=== PATIENT | male | born 1950 | race Caucasian/White ===

== ENCOUNTER 2018-03-30 10:50 | Emergency (ER) | payer OTHER ==
[~2018-03-30] VITALS: Ht 172.7 cm; Wt 77.3 kg
[2018-03-30 11:27] LABS: BASO # 0.1 (0.0-0.2); BASO % 0.7 % (0.0-2.0); EOS # 0.1 (0.0-0.7); EOS % 1.6 % (0-4.0); GRAN # 4.3 (1.4-6.5); HEMOGLOBIN 16.2 g/dl (13.5-18.0); LYMPH # 1.8 (1.2-3.4); LYMPH % 26.6 % (20.0-51.0); MEAN CELL VOLUME 90 fl (80.0-100.0); MEAN CORPUSCULAR HEMOGLOBIN 30 pg (27.0-31.0); MEAN CORPUSCULAR HGB CONC 33 g/dl (33.0-37.0); MEAN PLATELET VOLUME 9.8 fl (7.4-10.4); MONO # 0.5 (0.1-0.6); MONO % 7.8 % (1.7-9.3); PLATELET COUNT 185 K/mm3 (130-400); RED BLOOD COUNT 5.47 M/mm3 (4.20-5.60); REDCELL DISTRIBUTION WIDTH-CV 12.6 % (11.5-14.5)
[2018-03-30 11:29] LABS: ALANINE AMINOTRANSFERASE 41 U/L (21-72); ALBUMIN 4.5 gm/dL (3.5-5.0); ALKALINE PHOSPHATASE 73 U/L (50-136); ANION GAP 13 mmol/L (7-16); AST,SGOT 35 U/L (15-37); BILIRUBIN,TOTAL 0.5 mg/dL (0.0-1.0); BLOOD UREA NITROGEN 28 mg/dL (9-20); CALCIUM 9.1 mg/dL (8.4-10.2); CARBON DIOXIDE 25 mmol/L (22-30); CHLORIDE 102 mmol/L (98-107); CREATININE, serum 0.87 mg/dL (0.66-1.25); GLUCOSE 112 mg/dL (74-106); LIPASE 67 U/L (23-300); MAGNESIUM 2.3 mg/dL (1.6-2.3); PHOSPHOROUS 3.7 mg/dL (2.5-4.5); POTASSIUM 4.1 mmol/L (3.4-5.0); SODIUM 140 mmol/L (137-145); TOTAL PROTEIN 7.9 gm/dL (6.4-8.2)
[2018-03-30 11:41] LABS: TROPONIN-I < 0.012 ng/mL (0.000-0.034)
[2018-03-30 14:12] VITALS: BP 136/96; PULSE 68
== END 2018-03-30 14:14 | disposition home or self-care (01) ==
LOC: COL.ER 10:50
PROVIDERS: Emergency Medicine
DX: I48.92 Unspecified atrial flutter (principal)
CPT/HCPCS: J2250; J2704; J3010

== ENCOUNTER 2019-07-31 12:58 | Emergency (ER) | payer OTHER, MEDICARE ==
[~2019-07-31] VITALS: Ht 170.2 cm; Wt 75.0 kg
[2019-07-31 13:00] VITALS: TEMP 98.2
[2019-07-31] MEDS ORDERED: TOPROL XL 25MG25 MG PO (13:03)
[2019-07-31 13:30] LABS: BASO % 0.4 % (0.0-2.0); EOS # 0.1 (0.0-0.7); EOS % 1.2 % (0-4.0); GRAN # 4.9 (1.4-6.5); GRAN % 64.1 % (42.2-75.2); HEMATOCRIT 47.5 % (42.0-52.0); HEMOGLOBIN 16.1 g/dl (13.5-18.0); LYMPH # 2.1 (1.2-3.4); LYMPH % 27.7 % (20.0-51.0); MEAN CELL VOLUME 89 fl (80.0-100.0); MEAN CORPUSCULAR HEMOGLOBIN 30 pg (27.0-31.0); MEAN CORPUSCULAR HGB CONC 34 g/dl (33.0-37.0); MEAN PLATELET VOLUME 9.7 fl (7.4-10.4); MONO # 0.5 (0.1-0.6); MONO % 6.5 % (1.7-9.3); PLATELET COUNT 183 K/mm3 (130-400); RED BLOOD COUNT 5.35 M/mm3 (4.20-5.60); REDCELL DISTRIBUTION WIDTH-CV 12.7 % (11.5-14.5)
[2019-07-31 13:32] LABS: PROTHROMBIN TIME 11.9 SECONDS (9.7-12.8)
[2019-07-31 13:35] LABS: CALCIUM 9.3 mg/dL (8.4-10.2); CREATININE, serum 0.78 (0.66-1.25); POTASSIUM 4.2 mmol/L (3.4-5.0)
[2019-07-31 15:15] VITALS: BP 106/86; PULSE 131
[2019-07-31] MEDS ORDERED: CARDIZEM CD 12120 MG PO (15:26)
[2019-07-31] MEDS ORDERED: ELIQUIS 5MG PO (15:36)
== END 2019-07-31 15:40 | disposition home or self-care (01) ==
LOC: COL.ER 12:58
PROVIDERS: Emergency Medicine
DX: I48.92 Unspecified atrial flutter (principal); Z79.01 Long term (current) use of anticoagulants

== ENCOUNTER 2019-08-03 10:28 | Inpatient (IN) | payer OTHER, MEDICARE ==
[2019-08-03] VITALS (254 sets, daily range): BP systolic 85–123; BP diastolic 65–98; PULSE 71–135; TEMP 97.8–98.6; O2SAT 88–99
[~2019-08-03] VITALS: Ht 170.2 cm; Wt 86.1 kg
[~2019-08-03 10:28] MED LIST: CARDIZEM CD 12120 MG PO; ELIQUIS 5MG PO; TOPROL XL 25MG25 MG PO
[2019-08-03 11:12] LABS: BASO % 0.6 % (0.0-2.0); EOS # 0.1 (0.0-0.7); EOS % 0.7 % (0-4.0); GRAN # 4.6 (1.4-6.5); GRAN % 66.4 % (42.2-75.2); HEMATOCRIT 48.2 % (42.0-52.0); HEMOGLOBIN 15.9 g/dl (13.5-18.0); LYMPH # 1.7 (1.2-3.4); LYMPH % 24.5 % (20.0-51.0); MEAN CELL VOLUME 90 fl (80.0-100.0); MEAN CORPUSCULAR HEMOGLOBIN 30 pg (27.0-31.0); MEAN CORPUSCULAR HGB CONC 33 g/dl (33.0-37.0); MONO # 0.5 (0.1-0.6); MONO % 7.5 % (1.7-9.3); PLATELET COUNT 193 K/mm3 (130-400); RED BLOOD COUNT 5.38 M/mm3 (4.20-5.60); REDCELL DISTRIBUTION WIDTH-CV 12.5 % (11.5-14.5)
[2019-08-03 11:15] LABS: INR 1.1 (0.8-3.0); PROTHROMBIN TIME 12.4 SECONDS (9.7-12.8)
[2019-08-03 11:19] LABS: ALBUMIN 4.2 gm/dL (3.5-5.0); BILIRUBIN,TOTAL 0.6 mg/dL (0.0-1.0); CALCIUM 9.3 mg/dL (8.4-10.2); CREATININE, serum 1.03 (0.66-1.25); POTASSIUM 4.6 mmol/L (3.4-5.0); TOTAL PROTEIN 7.4 gm/dL (6.4-8.2)
[2019-08-03] MEDS ORDERED: ELIQUIS 5MG PO (11:21)
[2019-08-03] MEDS ORDERED: TIAZAC240 MG PO (11:22)
[2019-08-03 11:30] LABS: TROPONIN-I 0.032 ng/mL (0.000-0.035)
--- NOTE | 2019-08-03 14:10 | NUR ---
Pt admitted at this time to ICU bed 5 from ED. Pt arrived via stretcher and was placed on radiation monitor upon arrival. Pt tolerated transfer well with no complaints or concerns raised to nursing staff at this time. Vitals stable while on Cardizem gtt at 10 mg/hr. Dr. Franks notified of Pt admission and will be down shortly to see the patient. Call light within reach, bed in low et locked position, will continue to monitor.
--- NOTE | 2019-08-03 15:18 | NUR ---
Commercial Credit Officer met with patient to discuss discharge planning. Patient lives alone in [place] and does not have a current primary care physician. Patient states he used to see Dr. Augustus Randall but that it has been several years since he has been seen. SW offered to bring a list of [place] primary care providers but patient states he will just look either in the phone book or online. Patient obtains medications from [facility] and does not use any DME. Patient reports independence with ADLS. Patient states he has a Living Will that he set up with a local patent attorney but does not have a copy in EMR. Patient states it desigates his sister, Carmen who lives in [place]. Patient plans to return home upon discharge. No additional concerns at this time.
[2019-08-03] MEDS ORDERED: OMEGA-31 SGL PO (15:52)
[2019-08-03] MEDS ORDERED: OMEGA-3 1000 MG1 CAP PO (15:53)
[2019-08-03] MEDS ORDERED: THE MEDICINE S200 M2 PO (15:54)
--- NOTE | 2019-08-03 17:10 | NUR ---
Admission assessment complete at this time. Plan of care reviewed at bedside with patient. Additional time taken to address any other needs or concerns. Vitals stable at this time while on Cardizem gtt at 15 mg/hr. Pt denies pain or any other discomfort. Bed in low position, call light within reach, will continue to monitor.
--- NOTE | 2019-08-03 19:33 | NUR ---
Bedside report given to FLASH Smith.
--- NOTE | 2019-08-03 21:50 | NUR ---
Report and POC given to FLASH Vincent.
[2019-08-04] VITALS (236 sets, daily range): BP systolic 101–130; BP diastolic 51–97; PULSE 49–128; TEMP 97.2–98.2; O2SAT 62–100
[2019-08-04 06:16] LABS: BASO % 0.6 % (0.0-2.0); EOS # 0.1 (0.0-0.7); EOS % 1.7 % (0-4.0); GRAN # 3.9 (1.4-6.5); GRAN % 56.2 % (42.2-75.2); HEMATOCRIT 47.1 % (42.0-52.0); HEMOGLOBIN 15.5 g/dl (13.5-18.0); LYMPH # 2.2 (1.2-3.4); LYMPH % 31.8 % (20.0-51.0); MEAN CELL VOLUME 90 fl (80.0-100.0); MEAN CORPUSCULAR HEMOGLOBIN 30 pg (27.0-31.0); MEAN CORPUSCULAR HGB CONC 33 g/dl (33.0-37.0); MEAN PLATELET VOLUME 10.2 fl (7.4-10.4); MONO # 0.7 (0.1-0.6); MONO % 9.4 % (1.7-9.3); PLATELET COUNT 182 K/mm3 (130-400); RED BLOOD COUNT 5.26 M/mm3 (4.20-5.60); REDCELL DISTRIBUTION WIDTH-CV 12.2 % (11.5-14.5)
[2019-08-04 06:22] LABS: CALCIUM 9.1 mg/dL (8.4-10.2); CREATININE, serum 0.94 (0.66-1.25); POTASSIUM 4.4 mmol/L (3.4-5.0)
[2019-08-04 06:37] LABS: TROPONIN-I 0.047 ng/mL (0.000-0.035)
--- NOTE | 2019-08-04 09:07 | NUR ---
Initial visit; Patient thanked Military Cook for stopping by and offering God's blessings and [place] as he is being discharged today.
--- NOTE | 2019-08-04 09:35 | NUR ---
MD Jacqui, Annie,Ultrasound and Anesthesia notified planned procedure at 1015.
--- NOTE | 2019-08-04 11:01 | NUR ---
MD Jacqui notified of Post CV EKG results. No further orders, unconcerned at this time
--- NOTE | 2019-08-04 11:02 | NUR ---
EKG DONE. NOTIFIED MANUEL VIDALES OF "CRITICAL TEST RESULT" ON EKG. RN WILL CONTACT DR HOPE
--- NOTE | 2019-08-04 14:10 | NUR ---
Report phoned to FLASH Mattson.
--- NOTE | 2019-08-04 14:15 | NUR ---
Pt ambulated independently without difficulty upstairs to rm 308. Recieved by FLASH Mattson.
--- NOTE | 2019-08-04 14:25 | NUR ---
PATIENT ARRIVED TO ROOM 308 AMBULATORY FROM [facility] ACCOMPANIED BY MANUEL VIDALES. UPON ARRIVAL PATIENT A/O X4. ATTITUDE CALM AND PLEASANT. GAIT STEADY WITHOUT ASSISTIVE DEVICES. DENIES C/O PAIN OR DISCOMFORT. LUNG SOUNDS CTA THROUGHOUT. NO C/O OF SOA OR CHEST PAIN. ORIENTATED TO ROOM. NO QUESTIONS OR CONCERNS. ENCOURAGED TO EXPRESS NEEDS NEEDED.
--- NOTE | 2019-08-04 17:21 | NUR ---
ORDER FOR MULTAQ 400MG @ 1700. SEE EMAR FOR LAST DOCUMENTED DOSE AT 1158. HR ON TELEMETRY [place] 48-58. CALL TO ORDERING PROVIDER DR HOUSE. ORDER RECEIVED TO HOLD 1700 DOSE 08/04 AND RESUME BID ORDER 08/05/19.
--- NOTE | 2019-08-04 20:05 | NUR ---
Patient assessed at this time. Alert and oriented x 4, and able to make needs known. Denies having pain and discomfort at this time. Peripheral IV to right AC flushed. Site is without redness, warmth, swelling, and pain. Denies SOB and dyspnea. LS CTA. Respirations even and unlabored. HRR. Telemetry in place-normal sinus. Capillary refill less than 3 seconds. Non-tenting skin turgor. BSAx4. Abdomen soft and non-tender. No edema. Voices no questions, needs, or concerns at this time. Resting in bed with call light within reach.
[2019-08-05 01:36] VITALS: BP 110/71; PULSE 50; TEMP 97.7
[2019-08-05 05:29] VITALS: BP 125/62; PULSE 55; TEMP 97.5
--- NOTE | 2019-08-05 07:13 | NUR ---
Patient has denied having pain and discomfort throughout the night. Voices no questions, needs, or concerns at this time. Report given to first shift nurse.
[2019-08-05 07:22] LABS: BASO % 0.5 % (0.0-2.0); EOS # 0.1 (0.0-0.7); EOS % 2.2 % (0-4.0); GRAN # 3.3 (1.4-6.5); GRAN % 60.2 % (42.2-75.2); HEMATOCRIT 42.2 % (42.0-52.0); HEMOGLOBIN 13.8 g/dl (13.5-18.0); LYMPH # 1.5 (1.2-3.4); LYMPH % 27.7 % (20.0-51.0); MEAN CELL VOLUME 91 fl (80.0-100.0); MEAN CORPUSCULAR HEMOGLOBIN 30 pg (27.0-31.0); MEAN CORPUSCULAR HGB CONC 33 g/dl (33.0-37.0); MEAN PLATELET VOLUME 10.1 fl (7.4-10.4); MONO # 0.5 (0.1-0.6); MONO % 9.2 % (1.7-9.3); PLATELET COUNT 165 K/mm3 (130-400); RED BLOOD COUNT 4.65 M/mm3 (4.20-5.60); REDCELL DISTRIBUTION WIDTH-CV 12.4 % (11.5-14.5)
[2019-08-05 07:47] VITALS: BP 131/70; PULSE 52; TEMP 97.8
[2019-08-05 08:42] LABS: CALCIUM 8.7 mg/dL (8.4-10.2); CREATININE, serum 0.95 (0.66-1.25); POTASSIUM 4.1 mmol/L (3.4-5.0)
[2019-08-05] MEDS ORDERED: MULTAQ400 MG PO (08:53)
--- NOTE | 2019-08-05 10:40 | NUR ---
1040: PATIENT DC TO HOME VIA PRIVATE VEHICLE. PRINTED DC INSTRUCTIONS TO INCLUDE MEDICATIONS, FOLLOW UP AND HOSPITAL DISCHARGE DIAGNOSIS REVIEWED WITH PATIENT. ALL QUESTIONS ASWERED AFTER REVIW.
--- NOTE | 2019-08-05 10:58 | NUR ---
Abstractor attended clinical rounds with the team. Patient to discharge home today. SW provided patient list of local Primary Care Physicians as patient does not currently have PCP. No additional concerns at this time.
== END 2019-08-05 10:40 | disposition home or self-care (01) | DRG 282 ==
LOC: COL.ER 10:28 → ICU 13:21 → IMCU 16:28 → ICU 16:51 → IMCU 23:16 → MEDICAL 08-04 14:37
PROVIDERS: Emergency Medicine; Physician Assistant; ADMIT Hospitalist
PROC: 5A2204Z Restoration of Cardiac Rhythm, Single (ICD-10-PCS; principal; 2019-08-03)
DX: I48.92 Unspecified atrial flutter (principal); I21.A1 Myocardial infarction type 2; I10 Essential (primary) hypertension; I07.1 Rheumatic tricuspid insufficiency; I48.91 Unspecified atrial fibrillation; R74.8 Abnormal levels of other serum enzymes; Z79.01 Long term (current) use of anticoagulants
CPT/HCPCS: 99232-AI; 99239; J2704; J7030

== ENCOUNTER 2019-10-02 10:13 | Emergency (ER) | payer MEDICARE, OTHER ==
[~2019-10-02] VITALS: Ht 170.2 cm; Wt 79.5 kg
[~2019-10-02 10:13] MED LIST changes: +MULTAQ400 MG PO; +OMEGA-3 1000 MG1 CAP PO; +OMEGA-31 SGL PO; +THE MEDICINE S200 M2 PO; +TIAZAC240 MG PO
[2019-10-02 10:28] VITALS: TEMP 98.2
[2019-10-02 10:57] LABS: INR 1.3 (0.8-3.0); PROTHROMBIN TIME 15.6 SECONDS (9.7-12.8)
[2019-10-02 11:00] LABS: PARTIAL THROMBOPLASTIN TIME 38.4 SECONDS (26.0-37.0)
[2019-10-02 11:07] LABS: ALBUMIN 4.2 gm/dL (3.5-5.0); BILIRUBIN,TOTAL 0.5 mg/dL (0.0-1.0); CALCIUM 9.3 mg/dL (8.4-10.2); CREATININE, serum 1.17 (0.66-1.25); MAGNESIUM 2.3 mg/dL (1.6-2.3); POTASSIUM 4.6 mmol/L (3.4-5.0); TOTAL PROTEIN 7.2 gm/dL (6.4-8.2)
[2019-10-02 11:15] LABS: BASO # 0.1 (0.0-0.2); BASO % 0.7 % (0.0-2.0); EOS # 0.1 (0.0-0.7); GRAN # 4.7 (1.4-6.5); GRAN % 64.1 % (42.2-75.2); HEMATOCRIT 48.5 % (42.0-52.0); HEMOGLOBIN 16.4 g/dl (13.5-18.0); LYMPH # 1.8 (1.2-3.4); LYMPH % 24.7 % (20.0-51.0); MEAN CELL VOLUME 88 fl (80.0-100.0); MEAN CORPUSCULAR HEMOGLOBIN 30 pg (27.0-31.0); MEAN CORPUSCULAR HGB CONC 34 g/dl (33.0-37.0); MONO # 0.7 (0.1-0.6); MONO % 9.1 % (1.7-9.3); PLATELET COUNT 198 K/mm3 (130-400); RED BLOOD COUNT 5.54 M/mm3 (4.20-5.60)
[2019-10-02 11:36] LABS: TSH w REFLEX 2.47 uIU/mL (0.465-4.680)
[2019-10-02 15:33] VITALS: BP 168/92; PULSE 59
== END 2019-10-02 15:37 | disposition home or self-care (01) ==
LOC: COL.ER 10:13
PROVIDERS: Emergency Medicine
DX: I48.92 Unspecified atrial flutter (principal); Z79.01 Long term (current) use of anticoagulants
CPT/HCPCS: J0282; J2405; J2704; J3475; J7030; J7060

== ENCOUNTER 2021-06-12 05:02 | Emergency (ER) | payer MEDICARE, OTHER ==
[~2021-06-12] VITALS: Ht 177.8 cm; Wt 90.9 kg
[2021-06-12 05:08] VITALS: TEMP 98
[2021-06-12 05:19] LABS: COLLECTION METHOD CLEAN CATCH
[2021-06-12 05:28] LABS: PH 7 (5-8); SQUAMOUS EPITHELIAL None Seen /hpf; URINE APPEARANCE Clear; URINE BACTERIA None Seen /hpf; URINE BILIRUBIN Negative (NEGATIVE); URINE BLOOD Negative (NEGATIVE); URINE COLOR Straw; URINE GLUCOSE Negative (NEGATIVE); URINE KETONE Negative (NEGATIVE); URINE LEUKOCYTE ESTERASE Negative (NEGATIVE); URINE NITRATE Negative (NEGATIVE); URINE PROTEIN(semi-quant) Negative (NEGATIVE); URINE RBC 0-2 /hpf; URINE UROBILINOGEN Negative (NEGATIVE)
[2021-06-12 05:29] LABS: BASO % 0.5 % (0.0-2.0); EOS # 0.1 K/mm3 (0.0-0.7); EOS % 1.5 % (0-4.0); GRAN # 5.4 K/mm3 (1.4-6.5); GRAN % 67.4 % (42.2-75.2); HEMATOCRIT 47.2 % (42.0-52.0); LYMPH # 1.4 K/mm3 (1.2-3.4); LYMPH % 18.1 % (20.0-51.0); MEAN CELL VOLUME 93 fl (80.0-100.0); MEAN CORPUSCULAR HEMOGLOBIN 30 pg (27.0-31.0); MEAN CORPUSCULAR HGB CONC 32 g/dl (33.0-37.0); MONO % 12.1 % (1.7-9.3); PLATELET COUNT 178 K/mm3 (130-400); RED BLOOD COUNT 5.07 M/mm3 (4.20-5.60); REDCELL DISTRIBUTION WIDTH-CV 12.6 % (11.5-14.5)
[2021-06-12 05:42] LABS: ALBUMIN 4.3 gm/dL (3.4-4.8); BILIRUBIN,TOTAL 0.6 mg/dL (0.2-1.2); CALCIUM 9.6 mg/dL (8.4-10.2); CREATININE, serum 1.38 mg/dL (0.72-1.25); POTASSIUM 4.1 mmol/L (3.5-4.5); TOTAL PROTEIN 8.1 gm/dL (6.2-8.1)
[2021-06-12] MEDS ORDERED: TRAVATAN Z 2.52.5 ML (07:28)
[2021-06-12] MEDS ORDERED: PYRIDIUM 100MG100 MG PO (09:43)
[2021-06-12] MEDS ORDERED: NORCO 325 MG-51 TAB PO (09:43)
[2021-06-12 10:25] VITALS: BP 162/87; PULSE 63
== END 2021-06-12 10:25 | disposition home or self-care (01) ==
LOC: COL.ER 05:02
PROVIDERS: Emergency Medicine
DX: N30.90 Cystitis, unspecified without hematuria (principal); R33.9 Retention of urine, unspecified; I10 Essential (primary) hypertension
CPT/HCPCS: C1769; J2270; J2405; J7030; Q9967

== ENCOUNTER 2021-06-15 20:50 | Emergency (ER) | payer MEDICARE, OTHER ==
[~2021-06-15 20:50] MED LIST changes: +NORCO 325 MG-51 TAB PO; +PYRIDIUM 100MG100 MG PO; +TRAVATAN Z 2.52.5 ML
[2021-06-16] MEDS ORDERED: CIPRO 500MG TA500 MG PO (14:10)
== END 2021-06-15 21:00 | disposition left against medical advice (07) ==
LOC: COL.ER 20:50
DX: R69 Illness, unspecified (principal)

== ENCOUNTER 2021-06-16 09:04 | Emergency (ER) | payer MEDICARE, OTHER ==
[~2021-06-16] VITALS: Ht 177.8 cm; Wt 77.3 kg
[2021-06-16 09:45] VITALS: TEMP 98.8
[2021-06-16 10:34] LABS: COLLECTION METHOD CATHETER
[2021-06-16 10:46] LABS: BASO % 0.2 % (0.0-2.0); EOS % 0.1 % (0-4.0); GRAN # 7.7 K/mm3 (1.4-6.5); GRAN % 84.9 % (42.2-75.2); HEMATOCRIT 39.2 % (42.0-52.0); HEMOGLOBIN 13.4 g/dl (13.5-18.0); LYMPH # 0.6 K/mm3 (1.2-3.4); LYMPH % 6.5 % (20.0-51.0); MEAN CELL VOLUME 88 fl (80.0-100.0); MEAN CORPUSCULAR HEMOGLOBIN 30 pg (27.0-31.0); MEAN CORPUSCULAR HGB CONC 34 g/dl (33.0-37.0); MEAN PLATELET VOLUME 11.2 fl (7.4-10.4); MONO # 0.7 K/mm3 (0.1-0.6); MONO % 8.1 % (1.7-9.3); PLATELET COUNT 171 K/mm3 (130-400); RED BLOOD COUNT 4.47 M/mm3 (4.20-5.60); REDCELL DISTRIBUTION WIDTH-CV 12.1 % (11.5-14.5)
[2021-06-16 10:50] LABS: AMORPHOUS CRYSTAL Present /uL; MUCOUS Present /lpf; PH 6 (5-8); URINE APPEARANCE Cloudy; URINE BACTERIA Occasional /hpf; URINE BILIRUBIN Negative (NEGATIVE); URINE BLOOD 3+ (NEGATIVE); URINE COLOR Amber; URINE GLUCOSE Negative (NEGATIVE); URINE KETONE Negative (NEGATIVE); URINE LEUKOCYTE ESTERASE 3+ (NEGATIVE); URINE NITRATE Negative (NEGATIVE); URINE PROTEIN(semi-quant) 2+ (NEGATIVE); URINE RBC >50 /hpf; URINE UROBILINOGEN Negative (NEGATIVE)
[2021-06-16 11:07] LABS: ALBUMIN 3.7 gm/dL (3.4-4.8); BILIRUBIN,TOTAL 0.4 mg/dL (0.2-1.2); CALCIUM 9.3 mg/dL (8.4-10.2); CREATININE, serum 1.47 mg/dL (0.72-1.25); POTASSIUM 4.3 mmol/L (3.5-4.5); TOTAL PROTEIN 7.1 gm/dL (6.2-8.1)
[2021-06-16] MEDS ORDERED: CIPRO 500MG TA500 MG PO (14:10)
[2021-06-16 15:38] VITALS: BP 152/62; PULSE 63
== END 2021-06-16 14:10 | disposition home or self-care (01) ==
LOC: COL.ER 09:04
PROVIDERS: Physician Assistant
DX: N30.90 Cystitis, unspecified without hematuria (principal); I10 Essential (primary) hypertension
CPT/HCPCS: J0696; J1170; J3010

== ENCOUNTER → 2021-06-21 | Emergency (ER) | payer MEDICARE, OTHER ==
[~2021-06-21] MED LIST changes: +CIPRO 500MG TA500 MG PO; +FLOMAX 0.40.4 MG/CAP PO
== END ==
LOC: COL.ER 18:22
DX: R69 Illness, unspecified (principal)

== ENCOUNTER 2021-06-29 12:12 | Day surgery (SDC) | payer MEDICARE ==
[2021-06-29] VITALS (11 sets, daily range): BP systolic 120–170; BP diastolic 54–105; PULSE 48–85; TEMP 97.6–97.9
[~2021-06-29] VITALS: Ht 170.2 cm; Wt 77.8 kg
[~2021-06-29 12:12] MED LIST changes: -FLOMAX 0.40.4 MG/CAP PO
[2021-06-29] MEDS ORDERED: FLOMAX 0.40.4 MG/CAP PO (13:11)
--- NOTE | 2021-06-29 20:00 | NUR ---
PT IN BED. DENIES PAIN. IS ALERT AND ORIENTED X4. HAS SL TO LEFT WRIST. CONSUMED ALL OF DINNER TRAY. [place] CARES GIVEN. URINE RED WITH CBI AT MODERATE RATE. EM KNOT INTACT TO CALDWELL.
--- NOTE | 2021-06-29 23:36 | NUR ---
PT REPORTS BURNING AT CATHETER INSERTION SITE. WARM PACK APPLIED, TYLENOL AND MELATONIN GIVEN AT THIS TIME. URINE PINK WITH CBI GOING.
--- NOTE | 2021-06-30 00:29 | NUR ---
PT MOANING IN PAIN, REPORTS BURNING TO TIP OF PENIS. TRIED 2% UROJET ON PENIS WELL COLD AND WARM PACK WITHOUT RELIEF.
--- NOTE | 2021-06-30 00:37 | NUR ---
NOTIFIED DR ROBERTS OF PTS CONTINUED COMPLAIN OF BURNING AT THE TIP OF HIS PENIS, NEW ORDERS RECEIVED.
--- NOTE | 2021-06-30 00:47 | NUR ---
MEDICATED PT WITH LEVSIN SL, IBUPROFEN 200MG PO AND AZO 95MG PO AT THIS TIME. PT REPORTED FEELING "A LITTLE BETTER" PRIOR TO MEDS BEING GIVEN.
--- NOTE | 2021-06-30 02:00 | NUR ---
PT MORE RESTFUL AFTER MEDS. URINE CLEARING, HAS YELLOW TINGE.
[2021-06-30 03:38] VITALS: BP 119/58; PULSE 54; TEMP 98.8
--- NOTE | 2021-06-30 08:23 | NUR ---
Patient resting in bed. Breakfast ordered. Cbi to very slow drip. [place] tinged output. few clots noted. Report pain is releived from overnight. Int. Will monitor.
[2021-06-30 09:04] VITALS: BP 136/59; PULSE 75; TEMP 98.7
--- NOTE | 2021-06-30 11:06 | NUR ---
rounded. Patient hawkins primed & pulled per orders. Patient was anxious, but tolerated well. 6 bottle routine reviewed. Ice water provided.
[2021-06-30 11:58] VITALS: BP 141/75; PULSE 82; TEMP 97.7
--- NOTE | 2021-06-30 12:16 | NUR ---
Patient has voided x1 without difficulty. no interest in lunch. hoping to get home.
--- NOTE | 2021-06-30 12:47 | NUR ---
Drum Drier offered prayer and support with patient.
--- NOTE | 2021-06-30 15:10 | NUR ---
SW met with patient to complete intake. Patient states that he lives in [place] alone and his point of contact is his sister Wong Iglesias [phone]. Patient states that he does not utilize DME and is independent with ADLs. Patient provides that he does not utilize any HH services at this time. Patient states that he is unsure the name of his PCP, ontains meds from [facility] and is able to afford medications. Patient states that his sister has been appointed as his DPOA-HC. Patient states his plan is to return home up on DC. SW will continue to follow. DC plan: Home
--- NOTE | 2021-06-30 15:20 | NUR ---
Patient has completed his 6 bottle routine & ready for discharge home. notified & orders obtained. We reviewed all discharge instructions. Patietn understanding & denies questions. Int Dc. Patient called a friend for a ride home, Patient ambulated to the Er door.
== END 2021-06-30 15:24 | disposition home or self-care (01) ==
LOC: SDCO 12:12 → SURG 16:35 → SDCO 06-30 15:24
DX: N40.1 Benign prostatic hyperplasia with lower urinary tract symptoms (principal); R33.8 Other retention of urine; I10 Essential (primary) hypertension; I48.91 Unspecified atrial fibrillation; Z90.89 Acquired absence of other organs; Z79.899 Other long term (current) drug therapy
CPT/HCPCS: OP; J0690; J2250; J2704; J7120